=== PATIENT | male | born 1950 | race Caucasian/White ===

== ENCOUNTER 2018-09-10 17:46 | Outpatient (REF) | payer BC, SELFPAY ==
[2018-09-10 21:05] LABS: Anion Gap 9.8 mmol/L (3-11); BUN 17 mg/dL (7-18); CO2 27.2 mmol/L (21.0-32.0); CREATININE 1.02 mg/dL (0.70-1.30); Calcium 9.2 mg/dL (8.5-10.1); Chloride 102 mmol/L (98-107); Glucose 93 mg/dL (70-100); Sodium 139 mmol/L (136-145)
[2018-09-12 12:50] LABS: Hepatitis C Ab w Rflx HCV PCR Negative (NEGAT)
== END 2018-09-10 18:06 ==
LOC: NCHCN 17:46
PROVIDERS: PCP Internal Medicine; Visit Provider Internal Medicine
DX: I10 Essential (primary) hypertension (principal); Z11.59 Encounter for screening for other viral diseases; Z00.00 Encounter for general adult medical examination without abnormal findings
CPT/HCPCS: 80048; 86803

== ENCOUNTER 2020-06-01 16:12 | Outpatient (REF) | payer BC, SELFPAY ==
[2020-06-01 21:26] LABS: Anion Gap 12.8 mmol/L (3-11); BUN 25 mg/dL (7-18); CO2 23.2 mmol/L (21.0-32.0); CREATININE 1.38 mg/dL (0.70-1.30); Calcium 9.1 mg/dL (8.5-10.1); Chloride 101 mmol/L (98-107); Estimated GFR 51.24 (mL/min/1.73m2); Glucose 96 mg/dL (74-106); Potassium 4.1 mmol/L (3.5-5.1); Sodium 137 mmol/L (136-145)
[2020-06-01 21:33] LABS: Hemoglobin A1C 5.4 % (3.8-5.6)
== END 2020-06-01 16:32 ==
LOC: NCHCN 16:12
PROVIDERS: PCP Internal Medicine; Visit Provider Internal Medicine
DX: I10 Essential (primary) hypertension (principal); Z13.1 Encounter for screening for diabetes mellitus
CPT/HCPCS: 80048; 83036

== ENCOUNTER 2020-06-12 06:56 | Day surgery (SDC) | payer BC, SELFPAY ==
[2020-06-12] MEDS: Tetracaine 0.5% 4 ML BTL OS (08:14)
[2020-06-12] MEDS: Lidocaine 2% Jelly 6 ML SYR (08:18)
[2020-06-12] MEDS: Lidocaine 1% Pres-Free 5 ML VIAL (08:20)
[2020-06-12] MEDS: Balanced Salt Soln.-PLUS 500 ML BAG (08:23)
[2020-06-12] MEDS: Moxifloxacin-PF 1 MG/ML VIAL (08:29)
[2020-06-12] MEDS: Trypan Blue 0.06% 0.5 ML SYR (08:33)
--- NOTE | 2020-06-12 08:56 | W.PM.DSUDISC ---
Discharge Plan Disposition Patient Disposition: HOME Condition: Good Discharge Details Attending Provider: Carlos Petty Primary Care Provider: Hilario Charles Home Meds and New Rx's Prescriptions: No Action lisinopril 20 mg tablet 10 mg PO DAILY RF: 0 Discharge Instructions Stand Alone Forms: Post-op Topical Cataract, Jennifer Johnson (DSU) Discharge Orders Discharge Orders: Discharge Order (Routine); Ordered 06/12/20 Ordered By: Carlos Petty DS: Diagnosis Discharge Diagnosis (1) Posterior subcapsular age-related cataract of left eye: Status: Resolved (2) Nuclear sclerotic cataract of left eye: Status: Resolved
--- NOTE | 2020-06-12 08:57 | ROE_ITS ---
Date of service: 06/12/20 Time of Service: 08:57 Operative Note Operative Note DATE OF PROCEDURE: 06/12/20 PRE-OP DIAGNOSIS: Nuclear/posterior subcapsular cataract, left eye, symptomatic; poor red reflex secondary to cataract POST-OP DIAGNOSIS: same PROCEDURE: Cataract extraction using phacoemulsification with intraocular lens implant, left eye, using capsular staining with Vision Blue SURGEON: Carlos Petty ANESTHESIA: MAC (with local sub-tenon's anesthetic injection) COMPLICATIONS: None Patient was transported to: same day Patient's condition: stable Implants: Kirk [employer] Kirk / [employer] Tecnis [id number] Indications: Progressive decreased vision due to cataract, left eye, with poor red reflex Procedure Description: CATARACT SURGERY OPERATIVE REPORT PREOPERATIVE DIAGNOSIS: 1. Dense nuclear/posterior subcapsular cataract, left eye 2. Poor red reflex secondary to #1 POSTOPERATIVE DIAGNOSIS: Same OPERATION: 1. Cataract extraction using phacoemulsification with posterior chamber intraocular lens implant, left eye. 2. Capsular staining with Vision Blue IOL: IOL Toolmaker Helper/Model: Kirk & Kirk / CESIA Tecnis [id number] IOL Power: + 22.0 diopters IOL Serial Number: [id number] Optic Diameter: 6.0 mm Haptic/Overall Diameter: 13.0 mm PHACO INFO: Magnus Advanced Cell Diagnosticsurion Vision System with OZil and Active Fluidics Cumulative Dispersed Energy (CDE): 18.43 seconds SURGEON: Carlos Petty MD, DAMARIS ANESTHESIA: Monitored [facility] Care (MAC), with local sub-tenon's anesthetic infiltration COMPLICATIONS: None SPECIMENS: None INDICATIONS FOR PROCEDURE: The patient is a 67-year-old gentleman with history of diminished visual acuity in his left eye. He is noted to have a dense posterior subcapsular cataract with nuclear cataract of the left eye. The option of cataract surgery was offered to the patient and he wished to proceed. PROCEDURE: The correct surgical eye was identified and marked as the left eye and the pupil was dilated in the preoperative area using mydriatics and cycloplegics. The dilated pupil size was 5.5 mm. Oral sedation was administered in the form of an Imprimis MKO Melt (midazolam 3mg/ketamine 25mg/ondansetron 2mg). The patient was brought to the operating room where cardiopulmonary monitoring was instituted and surgical time-out was performed, confirming the correct operative eye and IOL power. Topical anesthesia was administered and ophthalmic povidone-iodine 5% was instilled into the conjunctival fornices. Lidocaine gel was applied to the cornea and the leanna-ocular area was prepped with Betadine 10% solution and draped in the usual sterile fashion for intraocular surgery, including an aperture drape. A Tegaderm transparent film dressing was cut in half and used to cover the lashes and lid margins. Care was taken to sequester the lashes and lid margins under the Tegaderm dressing. A lid speculum was placed between the lids of the operative eye and the Annamarie-Lupis operating microscope was maneuvered into position. Vijay scissors were then used to make a conjunctival buttonhole approximately 6mm posterior to the limbus in the inferonasal quadrant. Blunt dissection was carried out to expose bare sclera, and a blunt-tipped sub-tenon?s anesthesia cannula was introduced and passed posteriorly along the globe where non- preserved plain lidocaine was injected into posterior sub-Tenon?s space. A sideport knife was used to make a paracentesis port superiorly/superiort emporally. Intraocular phenylephrine/lidocaine was injected int the anterior chamber.. Air was then injected into the anterior chamber, followed by Vision Blue, which was painted over the anterior capsule and then irrigated out using BSS. The anterior chamber was filled with Healon Pro. A 2.4mm keratome knife was used to create a half-thickness groove at the limbus and then to construct a three-plane near-clear corneal tunnel extending 2.0mm into clear cornea at the 3:00 position. A flap was raised on the anterior capsule and capsulorhexis forceps were used to complete a continuous curvilinear capsulorhexis of 5.0 mm. The capsule was noted to be very thin. Moderate diffuse zonular laxity was noted. Balanced salt solution was then used to perform cortical cleaving hydrodissection and nuclear hydrodelineation until the lens could be freely rotated within the capsular bag. The lens nucleus was then disassembled and removed within the capsular bag and iris plane using phacoemulsification. Nuclear splinters were used to aid in cracking the lens into quadrants to reduce stress on the zonules. Residual cortical material was removed using the 45- degree angled silicone I/A tip with 0.3mm port. The posterior capsule was carefully polished to remove as much residual lens epithelial cells as safely possible. There was some residual posterior subcapsular plaque nasally. The capsular bag was then inflated and the anterior chamber deepened with viscoelastic. The lens implant described above was inserted into the capsular bag using the CESIA [place] Injector. A Kuglen hook was used to dial the IOL into position. Residual viscoelastic was then removed first from posterior to the IOL, then from the anterior chamber using the I/A handpiece. The lens implant was noted to center nicely within the capsular bag. The incisions were stromally hydrated, and the anterior chamber was reformed using BSS. Then 0.5cc of moxifloxacin 1.0mg/ml were injected into the capsular bag and anterior chamber. The incisions were checked with a Weck spear and found to be secure. Several drops of ophthalmic povidone-iodine 5% were then applied to the eye followed by two drops of Imprimis combination prednisolone/moxifloxacin/nepafenac solution. The drapes were removed and a clear plastic protective eye shield was placed over the eye. The patient was then returned to Same Day Surgery in stable condition.
[2020-06-12 09:15] VITALS: BP 138/92; PULSE 67; RESP 16; TEMP 36.2; O2SAT 96
== END 2020-06-12 09:30 | disposition home or self-care (01) ==
PROVIDERS: PCP Internal Medicine; Visit Provider Ophthalmology
PROC: (CPT 66982; principal; 2020-06-12 08:30)
DX: H25.042 Posterior subcapsular polar age-related cataract, left eye (principal); H25.12 Age-related nuclear cataract, left eye; H35.89 Other specified retinal disorders; I10 Essential (primary) hypertension
CPT/HCPCS: 66982; V2632

== ENCOUNTER 2020-06-26 06:59 | Day surgery (SDC) | payer BC, SELFPAY ==
[2020-06-26 07:00] VITALS: BP 140/99; PULSE 79; RESP 18; TEMP 36; O2SAT 95
--- NOTE | 2020-06-26 07:51 | W.PM.DSUDISC ---
Discharge Plan Disposition Patient Disposition: HOME Condition: Good Discharge Details Attending Provider: Carlos Petty Primary Care Provider: Hilario Charles Home Meds and New Rx's Prescriptions: No Action lisinopril 20 mg tablet 10 mg PO DAILY RF: 0 Discharge Instructions Stand Alone Forms: Post-op Topical Cataract, Jennifer Johnson (DSU) Discharge Orders Discharge Orders: Discharge Order (Routine); Ordered 06/26/20 Ordered By: Carlos Petty DS: Diagnosis Discharge Diagnosis (1) Nuclear sclerotic cataract of right eye: Status: Acute (2) Posterior subcapsular age-related cataract, right eye: Status: Resolved
[2020-06-26] MEDS: Lidocaine 1% Pres-Free 5 ML VIAL (07:54)
[2020-06-26] MEDS: Moxifloxacin-PF 1 MG/ML VIAL (08:01)
[2020-06-26] MEDS: Balanced Salt Soln.-PLUS 500 ML BAG (08:04)
[2020-06-26] MEDS: Lidocaine 2% Jelly 6 ML SYR (08:04)
[2020-06-26] MEDS: Povidone-Iodine Ophth 30 ML BTL (08:04)
[2020-06-26] MEDS: Tetracaine 0.5% 4 ML BTL OD (08:05)
[2020-06-26] MEDS: Trypan Blue 0.06% 0.5 ML SYR (08:10)
--- NOTE | 2020-06-26 08:25 | W.PM.OP ---
Date of service: 06/26/20 Time of Service: 08:26 Operative Note Operative Note DATE OF PROCEDURE: 06/26/20 PRE-OP DIAGNOSIS: Nuclear/posterior subcapsular cataract, right eye POST-OP DIAGNOSIS: same PROCEDURE: Cataract extraction using phacoemulsification with intraocular lens implantation, right eye, using capsular staining with Vision Blue SURGEON: Carlos Petty ANESTHESIA: MAC (with local sub-tenon's anesthetic injection) PATHOLOGY: none sent COMPLICATIONS: None Patient was transported to: same day Patient's condition: stable Implants: [employer] Kirk / [employer] Tecnis [id number] Indications: Progressive visual loss due to cataract, right eye Procedure Description: CATARACT SURGERY OPERATIVE REPORT PREOPERATIVE DIAGNOSIS: 1. Nuclear/posterior subcapsular cataract, right eye 2. Poor red reflex secondary to #1 POSTOPERATIVE DIAGNOSIS: Same OPERATION: 1. Cataract extraction using phacoemulsification with posterior chamber intraocular lens implant, right eye. 2. Capsular staining with Vision Blue IOL: IOL Printer Floor Covering Assistant/Model: Kirk & Kirk / CESIA Tecnis [id number] IOL Power: + 22.0 diopters IOL Serial Number: [id number] Optic Diameter: 6.0mm Haptic/Overall Diameter: 13.0mm PHACO INFO: Magnus Centurion Vision System with OZil and Active Fluidics Cumulative Dispersed Energy (CDE): 5.61 seconds SURGEON: Carlos Petty MD, DAMARIS ANESTHESIA: Monitored Anesthesia Care (MAC), with local sub-tenon's anesthetic infiltration COMPLICATIONS: None SPECIMENS: None INDICATIONS FOR PROCEDURE: Patient is a 9-year-old with history of diminished visual acuity in both eyes secondary to development of bilateral nuclear and posterior subcapsular cataract, left eye greater than right. He has already undergone cataract surgery in his left eye and is doing well postoperatively. He now presents for cataract surgery in the right eye. PROCEDURE: The correct surgical eye was identified and marked as the right eye and the pupil was dilated in the preoperative area using mydriatics and cycloplegics. The dilated pupil size was 5.5 mm. Oral sedation was administered in the form of an Imprimis MKO Melt (midazolam 3mg/ketamine 25mg/ondansetron 2mg). The patient was brought to the operating room where cardiopulmonary monitoring was instituted and surgical time-out was performed, confirming the correct operative eye and IOL power. Topical anesthesia was administered and ophthalmic povidone-iodine 5% was instilled into the conjunctival fornices. Lidocaine gel was applied to the cornea and the leanna-ocular area was prepped with Betadine 10% solution and draped in the usual sterile fashion for intraocular surgery, including an aperture drape. A Tegaderm transparent film dressing was cut in half and used to cover the lashes and lid margins. Care was taken to sequester the lashes and lid margins under the Tegaderm dressing. A lid speculum was placed between the lids of the operative eye and the Annamarie-Lupis operating microscope was maneuvered into position. Vijay scissors were then used to make a conjunctival buttonhole approximately 6mm posterior to the limbus in the inferonasal quadrant. Blunt dissection was carried out to expose bare sclera, and a blunt-tipped sub-tenon?s anesthesia cannula was introduced and passed posteriorly along the globe where non-preserved plain lidocaine was injected into posterior sub-Tenon?s space. A sideport knife was used to make a paracentesis port inferotemporally. Intraocular phenylephrine/lidocaine was injected into the anterior chamber. Air was injected into the anterior chamber, followed by Vision Blue, which was painted over the anterior capsule and then irrigated out with BSS. The anterior chamber was filled with Healon Pro. A 2.4mm keratome knife was used to create a half-thickness groove at the limbus and then to construct a three-plane near-clear corneal tunnel extending 2.0mm into clear cornea superiortemporally. A flap was raised on the anterior capsule and capsulorhexis forceps were used to complete a continuous curvilinear capsulorhexis of 5.0 mm. The capsule was noted quite thin with mild to moderate diffuse zonular laxity. Balanced salt solution was then used to perform cortical cleaving hydrodissection and nuclear hydrodelineation until the lens could be freely rotated within the capsular bag. The lens nucleus was then disassembled and removed within the capsular bag and iris plane using phacoemulsification. Residual cortical material was removed using the I/A handpiece. The posterior capsule was carefully polished to remove as much residual lens epithelial cells as safely possible. The capsular bag was then inflated and the anterior chamber deepened with viscoelastic. The lens implant described above was inserted into the capsular bag using the CESIA Al[place] Injector. A Kuglen hook was used to dial the IOL into position. Residual viscoelastic was then removed first from posterior to the IOL, then from the anterior chamber using the I/A handpiece. The lens implant was noted to center nicely within the capsular bag. The incisions were stromally hydrated, and the anterior chamber was reformed using BSS. Then 0.5cc of moxifloxacin 1.0mg/ml were injected into the capsular bag and anterior chamber. The incisions were checked with a Weck spear and found to be secure. Several drops of ophthalmic povidone-iodine 5% were then applied to the eye followed by two drops of Imprimis combination prednisolone/moxifloxacin/nepafenac solution. The drapes were removed and a clear plastic protective eye shield was placed over the eye. The patient was then returned to Same Day Surgery in stable condition.
[2020-06-26 08:54] VITALS: BP 152/98; PULSE 77; RESP 18; TEMP 36; O2SAT 97
== END 2020-06-26 08:55 | disposition home or self-care (01) ==
PROVIDERS: PCP Internal Medicine; Visit Provider Ophthalmology
PROC: (CPT 66982; principal; 2020-06-26 08:30)
DX: H25.11 Age-related nuclear cataract, right eye (principal); H25.041 Posterior subcapsular polar age-related cataract, right eye; H35.89 Other specified retinal disorders; Z96.1 Presence of intraocular lens; Z98.42 Cataract extraction status, left eye
CPT/HCPCS: 66982; V2632

== ENCOUNTER 2020-09-01 16:05 | Outpatient (REF) | payer BC, SELFPAY ==
[2020-09-01 20:54] LABS: Anion Gap 7.2 mmol/L (3-11); BUN 15 mg/dL (7-18); CO2 27.8 mmol/L (21.0-32.0); CREATININE 1.15 mg/dL (0.70-1.30); Calcium 8.8 mg/dL (8.5-10.1); Chloride 106 mmol/L (98-107); Glucose 105 mg/dL (74-106); Potassium 3.9 mmol/L (3.5-5.1); Sodium 141 mmol/L (136-145)
== END 2020-09-01 16:25 ==
LOC: NCHCN 16:05
PROVIDERS: PCP Internal Medicine; Visit Provider Internal Medicine
DX: I10 Essential (primary) hypertension (principal); Z00.00 Encounter for general adult medical examination without abnormal findings
CPT/HCPCS: 80048

== ENCOUNTER 2020-11-24 00:47 | Outpatient (CLI) | payer BC, SELFPAY ==
--- NOTE | 2020-11-24 | DI.RAD_ITS ---
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 TECHNIQUE: 2D digital imaging was performed. COMPARISON: No exams were available for comparison FINDINGS: No acute fracture or dislocation. The articular surfaces are well maintained without degenerative ch keon present. There is a small joint effusion. The bones appear mildly osteopenic. No suspicious l ytic or sclerotic lesion is identified. The soft tissues are unremarkable. IMPRESSION: 1. No significant degenerative changes in the left knee. 2. Mild generalized osteopenia. 3. Small joint effusion. DATA REPOSITORY: RADIATION DOSE DELIVERED:
== END 2020-11-24 01:07 ==
PROVIDERS: PCP Internal Medicine; Visit Provider Internal Medicine
DX: M25.462 Effusion, left knee (principal); M85.88 Other specified disorders of bone density and structure, other site
CPT/HCPCS: 73562

== ENCOUNTER 2021-03-26 14:36 | Outpatient (REF) | payer BC, SELFPAY ==
[2021-03-26 18:48] LABS: Abs Immature Grans 0.06 10^3/uL (0.0-0.06); Absolute Basophil Count 0.07 10^3/uL (0.0-0.2); Absolute Eosinophil Count 0.07 10^3/uL (0.0-0.7); Absolute Lymphocyte Count 2.39 10^3/uL (1.2-3.4); Absolute Monocyte Count 0.76 10^3/uL (0.1-0.8); Absolute Neutrophil Count 4.77 10^3/uL (1.2-6.7); Basophils % 0.9; Eosinophils % 0.9; HGB 13.6 g/dL (13.5-17.5); Immature Grans % 0.7; Lymphocytes % 29.4; MPV 10.4 fL (8.0-11.0); Monocytes % 9.4; Neutrophils % 58.7; Nucleated RBC 0 %; Platelet Count 261 10^3/uL (130-400); RDW 12.9 % (11.8-14.1); RDW-SD 47.7 fL; WBC 8.12 10^3/uL (4.4-10.8)
[2021-03-26 19:03] LABS: ALT 58 U/L (16-63); AST 45 U/L (15-37); Albumin 3.4 g/dL (3.4-5.0); Alkaline Phosphatase 191 U/L (46-116); Anion Gap 10.8 mmol/L (3-11); BUN 15 mg/dL (7-18); Bilirubin, Total 0.5 mg/dL (0.2-1.0); C-Reactive Protein 0.14 mg/dL (0.0-0.3); CO2 25.2 mmol/L (21.0-32.0); CREATININE 1.1 mg/dL (0.70-1.30); Calcium 8.7 mg/dL (8.5-10.1); Chloride 106 mmol/L (98-107); Glucose 88 mg/dL (74-106); Potassium 3.8 mmol/L (3.5-5.1); Sodium 142 mmol/L (136-145); Total Protein 6.3 g/dL (6.4-8.2)
== END 2021-03-26 14:37 | disposition home or self-care (01) ==
LOC: NCHCN 14:36
PROVIDERS: PCP Internal Medicine; Visit Provider Family Medicine
DX: R22.42 Localized swelling, mass and lump, left lower limb (principal)
CPT/HCPCS: 80053; 85025; 86140

== ENCOUNTER 2021-10-11 17:42 | Outpatient (REF) | payer BC, SELFPAY ==
[2021-10-11 21:44] LABS: Anion Gap 8.3 mmol/L (3-11); BUN 35 mg/dL (7-18); CO2 30.7 mmol/L (21.0-32.0); CREATININE 1.6 mg/dL (0.70-1.30); Calcium 8.7 mg/dL (8.5-10.1); Chloride 100 mmol/L (98-107); Estimated GFR 42.95 (mL/min/1.73m2); Glucose 97 mg/dL (74-106); Potassium 3.7 mmol/L (3.5-5.1); Sodium 139 mmol/L (136-145)
== END 2021-10-11 17:43 | disposition home or self-care (01) ==
LOC: NCHCN 17:42
PROVIDERS: PCP Internal Medicine; Visit Provider Family Medicine
DX: I10 Essential (primary) hypertension (principal)
CPT/HCPCS: 80048

== ENCOUNTER 2021-11-26 14:36 | Outpatient (REF) | payer OTHER, SELFPAY ==
[2021-11-26 20:27] LABS: Anion Gap 9.6 mmol/L (3-11); BUN 19 mg/dL (7-18); CO2 26.4 mmol/L (21.0-32.0); CREATININE 1.3 mg/dL (0.70-1.30); Calcium 8.5 mg/dL (8.5-10.1); Calculated LDL 70 mg/dL (<100); Chloride 101 mmol/L (98-107); Cholesterol 166 mg/dL (<200); Estimated GFR 54.57 (mL/min/1.73m2); Glucose 108 mg/dL (74-106); HDL Cholesterol 41 mg/dL (40-60); Potassium 4.1 mmol/L (3.5-5.1); Sodium 137 mmol/L (136-145); Triglyceride 277 mg/dL (<150)
== END 2021-11-26 14:37 | disposition home or self-care (01) ==
LOC: NCHCN 14:36
PROVIDERS: PCP Internal Medicine; Visit Provider Family Medicine
DX: I10 Essential (primary) hypertension (principal); Z00.00 Encounter for general adult medical examination without abnormal findings
CPT/HCPCS: 80048; 80061

== ENCOUNTER 2022-08-03 09:34 | Outpatient (REF) | payer OTHER, SELFPAY ==
[2022-08-03 16:32] LABS: ALT 36 U/L (16-63); AST 34 U/L (15-37); Albumin 3.6 g/dL (3.4-5.0); Alkaline Phosphatase 140 U/L (46-116); Anion Gap 8.2 mmol/L (3-11); BUN 13 mg/dL (7-18); Bilirubin, Total 1.1 mg/dL (0.2-1.0); CO2 30.8 mmol/L (21.0-32.0); CREATININE 1.1 mg/dL (0.70-1.30); Calcium 9.2 mg/dL (8.5-10.1); Chloride 101 mmol/L (98-107); Estimated GFR 72.22 (mL/min/1.73m2); Folate 12.8 ng/mL (8.6-20.0); Glucose 106 mg/dL (74-106); Potassium 3.9 mmol/L (3.5-5.1); Sodium 140 mmol/L (136-145); TSH (W/Ref FT4) 1.04 uIU/mL (0.36-3.74); Total Protein 6.9 g/dL (6.4-8.2); Vitamin B12 167 pg/mL (193-986)
[2022-08-03 16:54] LABS: Abs Immature Grans 0.04 10^3/uL (0.0-0.06); Absolute Basophil Count 0.05 10^3/uL (0.0-0.2); Absolute Eosinophil Count 0.08 10^3/uL (0.0-0.7); Absolute Lymphocyte Count 1.11 10^3/uL (1.2-3.4); Absolute Monocyte Count 0.69 10^3/uL (0.1-0.8); Basophils % 0.7; Eosinophils % 1.1; HCT 42.5 % (40.0-50.0); HGB 14.3 g/dL (13.5-17.5); Immature Grans % 0.6; Lymphocytes % 15.7; MCH 33.7 pg (27.0-33.0); MCHC 33.6 % (32.0-36.0); MCV 100 fL (80-95); MPV 9.6 fL (8.0-11.0); Monocytes % 9.8; Neutrophils % 72.1; Platelet Count 289 10^3/uL (130-400); RBC 4.24 10^6/uL (4.36-5.78); RDW 13.9 % (11.8-14.1); RDW-SD 51.3 fL; WBC 7.07 10^3/uL (4.4-10.8)
== END 2022-08-03 09:35 | disposition home or self-care (01) ==
LOC: NCHCN 09:34
PROVIDERS: PCP Internal Medicine; Visit Provider Family Medicine
DX: R41.3 Other amnesia (principal); R29.898 Other symptoms and signs involving the musculoskeletal system
CPT/HCPCS: 80053; 82607; 82746; 84443; 85025

== ENCOUNTER → 2022-09-01 02:54 | Outpatient (CLI) | payer OTHER, SELFPAY ==
--- NOTE | 2022-09-01 08:30 | DI.CT_ITS ---
Exam(s) CT HEAD WO/W EXAM: CT HEAD WO/W CLINICAL HISTORY: MEMORY IMPAIRMENT, R41.3; BILAT LEG WEAKNESS, R29.898. TECHNIQUE: Imaging Protocol: Axial computed tomography images with coronal and sagittal reformatted images were created and reviewed. CONTRAST MATERIAL: Intravenous: Omnipaque 350 contrast volume:100 mL COMPARISON: No exams were available for comparison FINDINGS: Ventricles and Extra axial spaces: Normal in size and morphology for the patient's age. Hemorrhage: None. Cerebral parenchyma: There is no evidence of an acute territorial infarct. There are areas of decrea sed attenuation in the white matter most consistent with small vessel ischemic disease. Enhancement: No suspicious enhancement. [place]: Unremarkable. Midline shift: None. Brainstem/Cerebellum: Normal. Calvarium: Normal. Degenerative changes are seen in the TMJs bilaterally. Visualized Paranasal sinuses/Mastoids: Clear. IMPRESSION: No acute intracranial process. RADIATION DOSE DELIVERED: 1,494.74mGy.cm Total DLP 1,494.74mGy.cm Total DLP DATA REPOSITORY: All CT scans at this facility are submitted to the National Radiology Data Registry (NRDR) Dose Index Registry (DIR) with the [employer] (ACR). RADIATION OPTIMIZATION: All CT scans at this facility use at least one of these dose optimization te chniques: automated exposure control; mA and/or kV adjustment per patient size (includes targeted exa ms where dose is matched to clinical indication); or iterative reconstruction.
[2022-09-01] MEDS: Omnipaque 350 MG/ML 500 ML BTL-Imaging package IJ (08:39)
[2022-09-01] MEDS: Normal Saline Flush 10 ML SYR IVP (08:42)
== END ==
PROVIDERS: PCP Internal Medicine; Visit Provider Family Medicine
DX: R41.3 Other amnesia (principal); R29.898 Other symptoms and signs involving the musculoskeletal system
CPT/HCPCS: 70470

== ENCOUNTER 2023-12-21 16:15 | Outpatient (REF) | payer MEDICARE, SELFPAY ==
[2023-12-21 21:37] LABS: HCT 45.6 % (40.0-50.0); HGB 15.1 g/dL (13.5-17.5); MCH 31.3 pg (27.0-33.0); MCHC 33.1 % (32.0-36.0); MCV 94 fL (80-95); MPV 9.4 fL (8.0-11.0); Platelet Count 281 10^3/uL (130-400); RBC 4.83 10^6/uL (4.36-5.78); RDW-SD 45.1 fL; WBC 6.48 10^3/uL (4.4-10.8)
[2023-12-21 21:47] LABS: ALT 67 U/L (16-63); AST 74 U/L (15-37); Albumin 3.6 g/dL (3.4-5.0); Alkaline Phosphatase 149 U/L (46-116); Anion Gap 10.8 mmol/L (3-11); BUN 18 mg/dL (7-18); Bilirubin, Total 0.4 mg/dL (0.2-1.0); CO2 26.2 mmol/L (21.0-32.0); CREATININE 1.3 mg/dL (0.70-1.30); Chloride 104 mmol/L (98-107); Estimated GFR 58.37 (mL/min/1.73m2); Glucose 102 mg/dL (74-106); Potassium 3.9 mmol/L (3.5-5.1); Sodium 141 mmol/L (136-145); Total Protein 7.2 g/dL (6.4-8.2)
== END 2023-12-21 16:16 | disposition home or self-care (01) ==
LOC: NCHCN 16:15
PROVIDERS: PCP Internal Medicine; Visit Provider Family Medicine
DX: I10 Essential (primary) hypertension (principal)
CPT/HCPCS: 80053; 85027

== ENCOUNTER → 2024-02-01 03:12 | Outpatient (CLI) | payer MEDICARE, SELFPAY ==
--- NOTE | 2024-02-01 14:28 | DI.RAD_ITS ---
Exam(s) XR KNEE RT 3V AP,LAT,SAM EXAM: XR KNEE RT 3V AP,LAT,SAM CLINICAL HISTORY: RT KNEE PAIN, M25.561. TECHNIQUE: 2D digital imaging was performed of the right knee. Three views obtained. AP, lateral an d PA tunnel views were obtained. COMPARISON: CR XR KNEE LT 3V AP,LAT,SAM from 11/24/2020 FINDINGS: BONES: No acute fracture is present. No bony destructive lesion is seen. JOINTS: The knee is normally aligned. There is a small joint effusion. SOFT TISSUE: Normal. IMPRESSION: Small joint effusion. DATA REPOSITORY: RADIATION DOSE DELIVERED:
== END ==
PROVIDERS: PCP Internal Medicine; Visit Provider Family Medicine
DX: M25.561 Pain in right knee (principal); M25.461 Effusion, right knee
CPT/HCPCS: 73562

== ENCOUNTER 2024-06-25 15:56 | Outpatient (REF) | payer MEDICARE, SELFPAY ==
[2024-06-25 17:40] LABS: Vitamin B12 384 pg/mL (193-986)
[2024-06-25 22:36] LABS: PSA, Screening 23.9 ng/mL (<=6.5)
== END 2024-06-25 15:57 | disposition home or self-care (01) ==
LOC: NCHCN 15:56
PROVIDERS: PCP Family Medicine; Visit Provider Family Medicine
DX: N40.1 Benign prostatic hyperplasia with lower urinary tract symptoms (principal)
CPT/HCPCS: 84153; 82607

== ENCOUNTER → 2024-07-04 08:50 | Outpatient (BNVA) | payer OTHER, SELFPAY | PROVIDERS: PCP Family Medicine; Referring Provider Family Medicine; Visit Provider Nurse Practitioner Gerontology | DX: N40.1 Benign prostatic hyperplasia with lower urinary tract symptoms (principal); R35.1 Nocturia; N40.2 Nodular prostate without lower urinary tract symptoms; R97.20 Elevated prostate specific antigen [PSA] | CPT/HCPCS: 51798; 81003; 99205 ==

== ENCOUNTER 2024-07-27 19:48 | Inpatient (IN) | payer OTHER, SELFPAY ==
[2024-07-27] VITALS (14 sets, daily range): BP systolic 176–197; BP diastolic 106–112; PULSE 42–66; RESP 12–16; TEMP 36.6; O2SAT 96–98
--- NOTE | 2024-07-27 20:34 | W.ED.GENAD ---
Discharge Plan Discharge Details Chief Complaint: Fall/Non TraumaCriteria Primary Care Provider: Ruy Ellis ED Provider: Carlos Barriga Home Meds and New Rx's Prescriptions: No Action donepezil 5 mg tablet 5 mg PO DAILY lisinopril-hydrochlorothiazide 20-25 mg tablet 1 tab PO DAILY mecobalamin (vitamin B12) 1,000 mcg tablet,chewable 1,000 mcg PO DAILY levofloxacin 500 mg tablet 500 mg PO DAILY Qty: 3 0RF Rx Instructions: Take 1 tab the day before the procedure, one the day of the procedure, and 1 tab the day after the procedure. HPI General Date/Time Provider Initiated Documentation: 07/27/24 20:17. HPI Narrative: 73-year-old male presents after mechanical slip and fall off of 2 steps, onto right side, pain to right hip right thigh leg and ankle unable to bear weight on right leg, did hit the back of his head small abrasion to scalp without loss of conscious nausea vomiting headache neck pain chest or abdominal pain. Behaving normally per family. Related Data Home Medications ?Medication ?Instructions ?Recorded ?Confirmed donepezil 5 mg tablet 5 mg PO DAILY 04/24/24 07/27/24 lisinopril 20 1 tab PO DAILY 04/24/24 07/27/24 mg-hydrochlorothiazide 25 mg tablet mecobalamin (vitamin B12) 1,000 1,000 mcg PO DAILY 04/24/24 07/27/24 mcg chewable tablet levofloxacin 500 mg tablet 500 mg PO DAILY #3 tabs 07/09/24 07/27/24 Previous Rx's ?Medication ?Instructions ?Recorded levofloxacin 500 mg tablet 500 mg PO DAILY #3 tabs 07/09/24 Allergies Allergy/AdvReac Type Severity Reaction Status Date / Time No Known Allergies Allergy Unverified 07/27/24 19:57 General Stated Complaint: Fall/Non TraumaCriteria ADILENE: 3 Exam Narrative Exam Narrative: Alert oriented resting fully no acute distress 1 mm superficial abrasion to occipital scalp hemostatic no foreign body No midline spinal tenderness step-off crepitus or deformity full range of motion of neck Speaking full sentences no respiratory distress no chest wall crepitus or deformity Abdomen soft nontender nondistended Pelvis stable Discomfort with movement at hip and knee right side, mild right knee effusion, no crepitus deformity or step-off noted to limb, warm well-perfused DP pulse intact sensate unable to bear weight Alert oriented moving extremities without deficit no ataxia normal speech cranial nerves intact Course Vital Signs Vital signs: Vital Signs Temperature 36.6 C 07/27/24 19:54 Pulse 48 L 07/27/24 19:54 Respiratory Rate 16 07/27/24 19:54 Blood Pressure 192/109 H 07/27/24 19:54 Pulse Oximetry 98 07/27/24 19:54 Temperature 36.6 C 07/27/24 19:54 Pulse 48 L 07/27/24 19:54 Respiratory Rate 16 07/27/24 19:54 Respiratory Effort Normal 07/27/24 19:58 Blood Pressure 192/109 H 07/27/24 19:54 Pulse Oximetry 98 07/27/24 19:54 Pain Level 6 07/27/24 19:54 Medical Decision Making 73-year-old male presents after mechanical fall from standing 2 stairs slipped backwards landing on right side pain to hip leg and ankle no loss of consciousness however patient did sustain 1 mm superficial abrasion occipital scalp hemostatic no foreign body no step-off, no midline spinal tenderness crepitus step-off or deformity, alert oriented cranial nerves intact no focal deficits sensation intact no truncal ataxia, great difficulty with movement of right lower extremity due to pain at hip and thigh, warm well-perfused sensate limb. Concern for proximal femur fracture versus pelvic fracture versus less likely tibial plateau fracture obtain x-ray of right lower extremity, patient does not want analgesia at this time. No to be hypertensive bradycardic will repeat vitals if still hypertensive bradycardic must consider [place]'s reflex in the setting of intracranial hypertension and will add CT head however patient has no nausea vomiting altered mental status pupillary defect cranial nerve defect or focal neurologic defect to suggest ICH 23: 27 intertrochanteric right femur fracture. Limb neurovascularly intact. Hypertension likely related to pain, patient is got a dose of Toradol now a dose of Dilaudid as well, we do not have orthopedic surgery in house until the or , have reached out to [facility], operated by [facility] as well as [facility] she do not have any orthopedic availability, I have placed a consultation with [facility] orthopedic team for potential transfer awaiting callback 07/28 12: 50 awaiting callback for potential transfer patient resting comfortably hemodynamically stable Quality:SDOH Health Related Social Needs: No Data to Display PFSH All Active Problems (Updated 07/06/24 @ 09:00 by Juli Villaseñor DNP) Lower urinary tract symptoms (LUTS) (Acute) Prostate nodule (Acute) Elevated PSA, greater than or equal to 20 ng/ml (Acute) Elevated PSA (Acute) Dementia (Chronic) Nuclear sclerotic cataract of right eye (Acute) Medical History BPH (benign prostatic hyperplasia) Screening for diabetes mellitus Seborrheic keratoses Hypertension Surgical History History of cataract surgery Social History Smoking/Tobacco Use Status: Former Tobacco Use Quit Date: 11/06/79 Smoking risk assessment performed?: Yes Alcohol Intake: current Alcohol Intake frequency: a few times a week Alcohol type: beer Drug use: Never Substance use type: does not use Details: drank 1 beer tonight Housing: house Do you feel safe at home: Yes Do you feel safe in your relationship?: Yes Sign Out Sign Out Data: Sign Out Comment: right hip fracture from [facility] fall, no ortho, neuro vasc intact, awaiting ortho [facility] call back Last updated by Carlos Barriga MD at 07/28/24 00:25
--- NOTE | 2024-07-27 21:37 | DI.RAD_ITS ---
Exam(s) XR FEMUR RT EXAM: XR FEMUR RT CLINICAL HISTORY: fall right hip thigh pain, unable to walk. TECHNIQUE: 2D digital imaging was performed. COMPARISON: No exams were available for comparison FINDINGS: 3 views There is intertrochanteric fracture of the right hip with moderate varus deformity. No prominent ips ilateral hip joint space narrowing. No other fractures identified lower down in the femur. IMPRESSION: Intertrochanteric fracture right hip. DATA REPOSITORY: RADIATION DOSE DELIVERED:
--- NOTE | 2024-07-27 21:38 | DI.RAD_ITS ---
Exam(s) XR ANKLE RT COMPLETE EXAM: XR ANKLE RT COMPLETE CLINICAL HISTORY: fall unable to walk, pain leg and ankle. TECHNIQUE: 2D digital imaging was performed. COMPARISON: No exams were available for comparison FINDINGS: 3 views No evidence of fracture or widening of the ankle mortise. Talar dome unremarkable. No obvious degen erative changes nor osseous lesions IMPRESSION: No significant osseous findings in the ankle. DATA REPOSITORY: RADIATION DOSE DELIVERED:
--- NOTE | 2024-07-27 21:38 | DI.RAD_ITS ---
Exam(s) XR PELVIS AP EXAM: XR PELVIS AP CLINICAL HISTORY: fall right hip pain. TECHNIQUE: 2D digital imaging was performed. COMPARISON: No exams were available for comparison FINDINGS: Single AP view. There appears to be a subtle intertrochanteric fracture of the right hip an element of Verus deformit y. No prominent hip joint space narrowing. No other fractures in the pelvis nor within the opposite -left hip. IMPRESSION: Right hip intertrochanteric fracture. DATA REPOSITORY: RADIATION DOSE DELIVERED:
--- NOTE | 2024-07-27 21:38 | DI.RAD_ITS ---
Exam(s) XR TIB/FIB RT EXAM: XR TIB/FIB RT CLINICAL HISTORY: fall unable to walk. TECHNIQUE: 2D digital imaging was performed. COMPARISON: No exams were available for comparison FINDINGS: Two views. No evidence of fracture of the tibia and fibula. No radiopaque foreign bodies. No osseous lesions. Bone density normal. IMPRESSION: No acute osseous findings in the tibia and fibula. DATA REPOSITORY: RADIATION DOSE DELIVERED:
--- NOTE | 2024-07-27 21:38 | DI.RAD_ITS ---
Exam(s) XR KNEE RT 3V AP,LAT,SAM EXAM: XR KNEE RT 3V AP,LAT,SAM CLINICAL HISTORY: fall, unable to walk. TECHNIQUE: 2D digital imaging was performed. COMPARISON: CR XR KNEE RT 3V AP,LAT,SAM from 02/01/2024 FINDINGS: 3 views No evidence of acute fracture or obvious joint effusion. No joint space narrowing. Mild degenerativ e changes in the medial compartment. No osseous lesions. No radiopaque foreign bodies IMPRESSION: No acute osseous findings in the knee. DATA REPOSITORY: RADIATION DOSE DELIVERED:
[2024-07-27 22:59] LABS: Abs Immature Grans 0.09 10^3/uL (0.0-0.06); Absolute Basophil Count 0.06 10^3/uL (0.0-0.2); Absolute Eosinophil Count 0.08 10^3/uL (0.0-0.7); Absolute Lymphocyte Count 1.34 10^3/uL (1.2-3.4); Absolute Monocyte Count 0.92 10^3/uL (0.1-0.8); Absolute Neutrophil Count 10.14 10^3/uL (1.2-6.7); Basophils % 0.5 %; Eosinophils % 0.6 %; HCT 42.3 % (40.0-50.0); HGB 14.4 g/dL (13.5-17.5); Immature Grans % 0.7 %; Lymphocytes % 10.6 %; MCH 32.1 pg (27.0-33.0); MCV 94 fL (80-95); MPV 9.9 fL (8.0-11.0); Monocytes % 7.3 %; Neutrophils % 80.3 %; Platelet Count 263 10^3/uL (130-400); RBC 4.49 10^6/uL (4.36-5.78); RDW 13.9 % (11.8-14.1); RDW-SD 48.3 fL; WBC 12.63 10^3/uL (4.4-10.8)
[2024-07-27] MEDS: Ketorolac 15 MG/ML VIAL IVP (23:01)
[2024-07-27 23:08] LABS: ALT 30 U/L (16-63); AST 31 U/L (15-37); Albumin 3.3 g/dL (3.4-5.0); Alkaline Phosphatase 128 U/L (46-116); Anion Gap 11.6 mmol/L (3-11); BUN 19 mg/dL (7-18); Bilirubin, Total 0.47 mg/dL (0.2-1.0); CO2 23.4 mmol/L (21.0-32.0); Chloride 100 mmol/L (98-107); Estimated GFR 79.97 (mL/min/1.73m2); Glucose 99 mg/dL (74-106); Potassium 4.8 mmol/L (3.5-5.1); Sodium 135 mmol/L (136-145); Total Protein 6.2 g/dL (6.4-8.2)
--- NOTE | 2024-07-27 23:10 | DI.VRAD_ITS ---
PROCEDURE INFORMATION: Exam: XR Right Ankle Exam date and time: 07/27/2024 9:21 PM Age: 73 years old Clinical indication: Other: Pain after fall, unable to walk. TECHNIQUE: Imaging protocol: Radiologic exam of the right ankle. Views: 3 or more views. COMPARISON: CR XR TIB/FIB RT 07/27/2024 9:17 PM FINDINGS: Bones/joints: The bones are demineralized. No acute fracture or subluxation. Soft tissues: Unremarkable. IMPRESSION: No acute bony pathology. Dictated and Authenticated by: Lea Baer MD. Ordering:SANTOS Gonzalez MD
--- NOTE | 2024-07-27 23:10 | DI.VRAD_ITS ---
PROCEDURE INFORMATION: Exam: XR Right Femur Exam date and time: 07/27/2024 8:59 PM Age: 73 years old Clinical indication: Patient HX: Fall right hip thigh pain, unable to walk TECHNIQUE: Imaging protocol: Radiologic exam of the right femur. Views: 2 views. COMPARISON: CR XR PELVIS AP 07/27/2024 8:57 PM FINDINGS: Bones/joints: Acute intertrochanteric right femoral fracture with moderate varus deformity. Remainder of the femur appears intact. Soft tissues: Soft tissue swelling surrounding the fracture site. IMPRESSION: Acute intertrochanteric right femoral fracture with moderate varus deformity. Dictated and Authenticated by: Lea Baer MD. Ordering:SANTOS Gonzalez MD
--- NOTE | 2024-07-27 23:10 | DI.VRAD_ITS ---
PROCEDURE INFORMATION: Exam: XR Pelvis Exam date and time: 07/27/2024 8:57 PM Age: 73 years old Clinical indication: Hip pain; Patient HX: Fall right hip thigh pain, unable to walk TECHNIQUE: Imaging protocol: Radiologic exam of the pelvis. Views: 1 or 2 view. COMPARISON: No relevant prior studies available. FINDINGS: Bones/joints: Acute intertrochanteric right femoral fracture with moderate varus deformity. Mild joint space narrowing in the hips. Soft tissues: Soft tissue swelling surrounding the fracture site. IMPRESSION: Acute intertrochanteric right femoral fracture with moderate varus deformity. Dictated and Authenticated by: Lea Baer MD. Ordering:SANTOS Gonzalez MD
--- NOTE | 2024-07-27 23:10 | DI.VRAD_ITS ---
PROCEDURE INFORMATION: Exam: XR Right Tibia and Fibula Exam date and time: 07/27/2024 9:17 PM Age: 73 years old Clinical indication: Other: Pain after fall, unable to walk. TECHNIQUE: Imaging protocol: Radiologic exam of the right tibia and fibula. Views: 2 views. COMPARISON: CR XR KNEE RT 3V AP,LAT,SAM 07/27/2024 9:10 PM FINDINGS: Bones/joints: The bones are demineralized. No acute fracture or subluxation. Soft tissues: Unremarkable. IMPRESSION: No acute bony pathology. Dictated and Authenticated by: Lea Baer MD. Ordering:SANTOS Gonzalez MD
--- NOTE | 2024-07-27 23:11 | DI.VRAD_ITS ---
PROCEDURE INFORMATION: Exam: XR Right Knee Exam date and time: 07/27/2024 9:10 PM Age: 73 years old Clinical indication: Other: Pain after fall, unable to walk. TECHNIQUE: Imaging protocol: Radiologic exam of the right knee. Views: 3 views. COMPARISON: CR XR KNEE RT 3V AP,LAT,SAM 02/01/2024 2:12 PM FINDINGS: Bones/joints: The bones are demineralized. No acute fracture or subluxation. Soft tissues: Unremarkable. IMPRESSION: No acute bony pathology. Dictated and Authenticated by: Lea Baer MD. Ordering:PKRISTEN Gonzalez MD
[2024-07-27] MEDS: HYDROmorphone 2 MG/ML SYR 0.5 MG IVP (23:58)
[2024-07-28] VITALS (25 sets, daily range): BP systolic 113–178; BP diastolic 68–107; PULSE 40–70; RESP 13–18; TEMP 35.9–36.9; O2SAT 95–99
--- NOTE | 2024-07-28 01:54 | W.EDPROG ---
Date of service: 07/28/24 Time of Service: 01:54 Medical Decision Making The patient was signed out to me by my colleague Dr. Serafin Castañeda pending follow-up from [facility] for potential transfer. Multiple local hospitals have been called for lateral transfer, all of which have been refused secondary to capacity at those locations. We did contact [facility] and the case was discussed with orthopedics, and then because of the patient's age the case was discussed with the hospitalist 's [place]. He agrees to accept the patient for transfer. Patient will be transferred for further surgical management. He will be made n.p.o. I have extensively reviewed the treatment plan with the patient. I have addressed all patient concerns at this time. I have also discussed the plan with the admitting physician and they agree with the current assessment and plan and have agreed to assume responsibility for the patient. All parties demonstrate verbal understanding and agreement with our assessment and plan at this time. The documentation in this chart was dictated using [employer] dictation software. Please excuse any dictation errors. At time of transfer the patient was reassessed and continued to demonstrate No signs of acute respiratory distress requiring intubation, hemodynamic instability requiring pressor support, or rapidly declining mental status. Quality:SDOH Health Related Social Needs: No Data to Display Sign Out Sign Out Data: Sign Out Comment: right hip fracture from [facility] fall, no ortho, neuro vasc intact, awaiting ortho [facility] call back Last updated by Carlos Barriga MD at 07/28/24 00:25 Discharge Plan Disposition Patient Disposition: Transfer-Acute Inpatient Care Specific Acute Inpt Facility: [facility] Condition: Good Discharge Details Chief Complaint: Fall/Non TraumaCriteria Clinical Impression: Closed right hip fracture Primary Care Provider: Ruy Ellis ED Provider: Richard Hein Home Meds and New Rx's Prescriptions: No Action donepezil 5 mg tablet 5 mg PO DAILY lisinopril-hydrochlorothiazide 20-25 mg tablet 1 tab PO DAILY mecobalamin (vitamin B12) 1,000 mcg tablet,chewable 1,000 mcg PO DAILY levofloxacin 500 mg tablet 500 mg PO DAILY Qty: 3 0RF Rx Instructions: Take 1 tab the day before the procedure, one the day of the procedure, and 1 tab the day after the procedure.
--- NOTE | 2024-07-28 06:58 | W.PCEDHO ---
Registration Status: Primary Language: Preferred Language: ED Information & Data Chief Complaint Fall/Non TraumaCriteria 07/27/24 20:35 Triage Note 1830 pt fell down, pt lost 07/27/24 19:54 balance coming off porch to concrete. pt able to turn self and fel to right side, hip to ankle hurts. DId hit head, not very hard, small abrasion to back of head. ptnot on blood thinners, axox4, PERRLA. pt took APAP prior to arrival Medical / Surgical History (Last Reviewed 07/04/24 @ 09:10 by Juli Villaseñor DNP) BPH (benign prostatic hyperplasia) Hypertension Screening for diabetes mellitus Seborrheic keratoses (Last Reviewed 07/04/24 @ 09:10 by Juli Villaseñor DNP) History of cataract surgery Most Recent Vital Signs Temperature 35.9 C L 07/28/24 06:14 Temperature Source Tympanic 07/28/24 06:14 Pulse 67 07/28/24 06:14 Pulse 42 L 07/28/24 04:20 Respiratory Rate 16 07/28/24 06:14 Respiratory Effort Normal 07/27/24 19:58 Blood Pressure 178/97 H 07/28/24 06:14 Pulse Oximetry 99 07/28/24 06:14 Oxygen Delivery Method Room Air 07/28/24 06:14 Oxygen Flow Rate 0 07/28/24 06:14 Pain Level 5 07/28/24 06:14 Allergies No Known Allergies Allergy (Unverified 07/27/24 19:57) IV IV Catheter Type [Left Saline Lock Antecubital] IV Catheter Gauge [Left 18 Antecubital] Diagnostics 07/27/24 Range/Units 21:56 WBC 12.63 H (4.4-10.8) 10^3/uL RBC 4.49 (4.36-5.78) 10^6/uL Hgb 14.4 (13.5-17.5) g/dL Hct 42.3 (40.0-50.0) % MCV 94 (80-95) fL MCH 32.1 (27.0-33.0) pg MCHC 34.0 (32.0-36.0) % RDW 13.9 (11.8-14.1) % Plt Count 263 (130-400) 10^3/uL MPV 9.9 (8.0-11.0) fL Immature Gran % 0.7 % Neutrophils % 80.3 % Lymphocytes % 10.6 % Monocytes % 7.3 % Eosinophils % 0.6 % Basophils % 0.5 % Nucleated RBC % 0.0 (0.0-0.3) % Absolute Neutrophils 10.14 H (1.2-6.7) 10^3/uL Absolute Lymphocytes 1.34 (1.2-3.4) 10^3/uL Absolute Monocytes 0.92 H (0.1-0.8) 10^3/uL Absolute Eosinophils 0.08 (0.0-0.7) 10^3/uL Absolute Basophils 0.06 (0.0-0.2) 10^3/uL Sodium 135 L (136-145) mmol/L Potassium 4.8 (3.5-5.1) mmol/L Chloride 100 (98-107) mmol/L Carbon Dioxide 23.4 (21.0-32.0) mmol/L Anion Gap 11.6 H (3-11) mmol/L BUN 19 H (7-18) mg/dL Creatinine 1.0 (0.70-1.30) mg/dL Est GFR (CKD-EPI 2020) 79.97 (mL/min/1.73m2) Glucose 99 (74-106) mg/dL Calcium 9.0 (8.5-10.1) mg/dL Total Bilirubin 0.47 (0.2-1.0) mg/dL AST 31 (15-37) U/L ALT 30 (16-63) U/L Alkaline Phosphatase 128 H (46-116) U/L Total Protein 6.2 L (6.4-8.2) g/dL Albumin 3.3 L (3.4-5.0) g/dL Intake and Output - 24 Hour Total 07/27/24 19:48 thru 07/27/24 19:54 Weight 62.596 kg Falls Risk Assessment History of Falls Previous History 07/27/24 23:02 Contributing Factors No Factors 07/27/24 23:02 Ambulatory Aids Independent 07/27/24 23:02 Tubes/Lines None 07/27/24 23:02 Gait Evaluation No gait disturbance 07/27/24 23:02 Cognition No cognitive impairment 07/27/24 23:02 Fall Total Score 15 07/27/24 23:02 Level of Risk Standard/Low Risk 07/27/24 23:02 v v v v v v v v v Sending and/or Receiving Nurses: Please use comment section below to note any information pertinent to the patient hand-off not included above. Information / Comments: Report received from: Jose A Morris RN @ 0645 hours 07/28/24
[2024-07-28] MEDS: HYDROmorphone 2 MG/ML SYR 1 MG IVP ×2 (07:24→13:05)
--- NOTE | 2024-07-28 08:08 | W.PM.HP.N ---
Date of service: 07/28/24 Time of Service: 08: Assessment and Plan Assessment and plan (1) Closed right hip fracture: Status: Acute Assessment and plan: - Resulted from a fall from 2 steps backwards -No loss of consciousness or acute findings on head CT -Imaging showed right intertrochanteric femur fracture -Patient has been accepted to hospitalist service under Dr. Garrison at [facility] with orthopedic surgery consulting for surgical intervention -Patient will remain n.p.o. (2) Dementia: Status: Chronic Assessment and plan: - Hold home donepezil (3) Hypertension: Status: Chronic Assessment and plan: - Hold home lisinopril/HCTZ History of Present Illness History of Present Illness Chief Complaint: Fall Narrative: 73-year-old male with a past medical history of dementia and hypertension who presented to the emergency department after experiencing a fall. Patient reportedly experienced a fall from standing from 2 steps falling backwards landing on his right side mainly on his hip and ankle. There was no reported loss of consciousness however patient did also experience superficial abrasion to his occipital scalp. Patient denies any lightheadedness, dizziness, chest pain, shortness of breath. In the emergency department the patient was noted as having significant difficulty moving his right lower extremity at the hip appear to be well-perfused. Head CT was negative but imaging did show a right intertrochanteric femur fracture. Unfortunately, orthopedic surgery services are not available at [facility] until 925 which prompted emergency room to reach out to outside hospitals and attempt to facilitate surgical intervention. Ultimately, hospitalist Dr. Garrison at [facility] [place] the hospital with orthopedic CV surgery consultation services. However, [facility] [place] informed that bed may not be available until later in the afternoon on 07/28/2024. Therefore, emergency room physician paged hospitalist for admission for patient with right intertrochanteric hip fracture has been accepted to [facility] for transfer. Review of Systems All systems reviewed & are unremarkable except as noted in HPI and below PFSH All Active Problems (Updated 07/28/24 @ 08:26 by Fer Velasco MD) Hypertension (Chronic) Closed right hip fracture (Acute) Lower urinary tract symptoms (LUTS) (Acute) Prostate nodule (Acute) Elevated PSA, greater than or equal to 20 ng/ml (Acute) Elevated PSA (Acute) Dementia (Chronic) Nuclear sclerotic cataract of right eye (Acute) Medical History BPH (benign prostatic hyperplasia) Screening for diabetes mellitus Seborrheic keratoses Hypertension Surgical History History of cataract surgery Social History Smoking/Tobacco Use Status: Former Tobacco Use Quit Date: 11/06/79 Smoking risk assessment performed?: Yes Alcohol Intake: current Alcohol Intake frequency: a few times a week Alcohol type: beer Drug use: Never Substance use type: does not use Details: drank 1 beer tonight Housing: house Do you feel safe at home: Yes Do you feel safe in your relationship?: Yes Meds Allergies and Home Medications Allergies Allergy/AdvReac Type Severity Reaction Status Date / Time No Known Allergies Allergy Unverified 07/27/24 19:57 Home Medications ?Medication ?Instructions ?Recorded ?Confirmed ?Type donepezil 5 mg tablet 5 mg PO DAILY 04/24/24 07/27/24 History lisinopril 20 1 tab PO DAILY 04/24/24 07/27/24 History mg-hydrochlorothiazide 25 mg tablet mecobalamin (vitamin B12) 1,000 1,000 mcg PO DAILY 04/24/24 07/27/24 History mcg chewable tablet levofloxacin 500 mg tablet 500 mg PO DAILY #3 tabs 07/09/24 07/27/24 Rx Exam Narrative Exam Narrative: Well-appearing older gentleman laying in bed in no acute distress, ANO x 4, heart regular rhythm, lungs clear to auscultation bilaterally, abdomen soft, nontender, nondistended, right lower extremity shortened with external rotation Results Labs 07/27/24 21:56 07/27/24 21:56 Labs: Laboratory Results - last 24 hr 07/27/24 21:56 WBC 12.63 H RBC 4.49 Hgb 14.4 Hct 42.3 MCV 94 MCH 32.1 MCHC 34.0 RDW 13.9 Plt Count 263 MPV 9.9 Immature Gran % 0.7 Neutrophils % 80.3 Lymphocytes % 10.6 Monocytes % 7.3 Eosinophils % 0.6 Basophils % 0.5 Nucleated RBC % 0.0 Absolute Neutrophils 10.14 H Absolute Lymphocytes 1.34 Absolute Monocytes 0.92 H Absolute Eosinophils 0.08 Absolute Basophils 0.06 Sodium 135 L Potassium 4.8 Chloride 100 Carbon Dioxide 23.4 Anion Gap 11.6 H BUN 19 H Creatinine 1.0 Est GFR (CKD-EPI 2020) 79.97 Glucose 99 Calcium 9.0 Total Bilirubin 0.47 AST 31 ALT 30 Alkaline Phosphatase 128 H Total Protein 6.2 L Albumin 3.3 L Last Vital Signs Temp 96.6 F L 07/28/24 06:14 Pulse 67 07/28/24 06:14 Resp 16 07/28/24 06:14 BP 178/97 H 07/28/24 06:14 Pulse Ox 99 07/28/24 06:14 Time Spent Time spent with Patient: >75 minutes Time was spent: preparing to see the patient(eg.review tests), obtaining and/or reviewing separately otained hiistory, ordering medications,tests, procedures, referring, communicating with other health medicare sales executive, indepentently interpreting results, counseling the patient and care coordination
[2024-07-28] MEDS: Lisinopril 20 MG TAB PO (08:30)
[2024-07-28] MEDS: Donepezil 5 MG TAB PO (08:30)
[2024-07-28] MEDS: hydroCHLOROthiazide 25 MG TAB PO (08:30)
[2024-07-28] MEDS: Normal Saline Flush 10 ML SYR IVP (13:06)
--- NOTE | 2024-07-28 13:36 | W.PM.DS.N ---
Date of service: 07/28/24 Time of Service: 13:36 DS: Diagnosis Discharge Diagnosis (1) Closed right hip fracture: Status: Acute (2) Dementia: Status: Chronic (3) Hypertension: Status: Chronic Discharge Plan Disposition Patient Disposition: Transfer-Acute Inpatient Care Specific Acute Inpt Facility: [facility] Condition: Good Discharge Details Reason For Visit: Right Intertrochnteric femur Fracture Admit Date/Time: 07/28/24 08:06 Admit Provider: Fer Velasco Attending Provider: Fer Velasco Primary Care Provider: uRy Ellis Hospital Course Hospital Course: Patient initially presented to the emergency department after experiencing a fall and was found to have a right intertrochanteric femur fracture. Orthopedic surgery services not available at [facility] and emergency room providers were able to reach out [facility] for excepting for her bladder being Dr. Garrison hospitalist with orthopedic surgery consulting services. Ultimately patient remained stable during hospitalization at [facility] and was determined to be stable for transfer to [facility]. Home Meds and New Rx's Prescriptions: No Action donepezil 5 mg tablet 5 mg PO DAILY lisinopril-hydrochlorothiazide 20-25 mg tablet 1 tab PO DAILY mecobalamin (vitamin B12) 1,000 mcg tablet,chewable 1,000 mcg PO DAILY levofloxacin 500 mg tablet 500 mg PO DAILY Qty: 3 0RF Rx Instructions: Take 1 tab the day before the procedure, one the day of the procedure, and 1 tab the day after the procedure. Discharge Instructions Activity:: Activity as Tolerated Equipment/Supplies:: No Equipment Needed Diet:: As Tolerated Discharge Orders Discharge Orders: Discharge Order (Routine); Ordered 07/28/24 Ordered By: Fer Velasco DS: Summary Time Spent with Patient providing and/or coordinating discharge services: Greater than 30 minutes Status at Discharge Functional status at discharge: independent ambulation Overall status at discharge: patient is back to baseline Mental Status: mental status grossly normal Speech and Movement: speech and movement normal Mood: congruent mood Affect: normal affect Quality:SDOH Health Related Social Needs: No Data to Display Exam Narrative Exam Narrative: Well-appearing older gentleman laying in bed in no acute distress, ANO x 4, heart regular rhythm, lungs clear to auscultation bilaterally, abdomen soft, nontender, nondistended, right lower extremity shortened with external rotation Psych Mental Status: mental status grossly normal Speech and Movement: speech and movement normal Mood: congruent mood Affect: normal affect DS: Data Vitals/I&O Vitals and I&O: Vital Signs Temperature 97.5 F L 07/28/24 11:37 Temperature Source Skin 07/28/24 11:37 Pulse 53 L 07/28/24 11:37 Pulse Rhythm Regular 07/28/24 09:37 Pulse 42 L 07/28/24 04:20 Respiratory Rate 14 07/28/24 11:37 Respiratory Effort Normal 07/28/24 09:37 Respiratory Depth Normal 07/28/24 09:37 Respiratory Pattern Normal 07/28/24 09:37 Blood Pressure 127/76 07/28/24 11:37 Blood Pressure Mean 83 07/28/24 08:13 Blood Pressure Position Supine 07/28/24 08:13 Pulse Oximetry 95 07/28/24 11:37 Oxygen Delivery Method Room Air 07/28/24 11:37 Oxygen Flow Rate 0 07/28/24 11:37 Pain Level 5 07/28/24 13:05 Comment pain level tolerable, difficulty giving number on pain scale 07/28/24 11:37 Intake & Output 07/27/24 07/28/24 07/28/24 17:59 05:59 17:59 Output Total 250 / 250 Balance -250 / -250 Weight 138 lb 132 lb Output: Urine 250 / 250 Other: Urine Color Light [place] Urine Appearance Clear Voiding Methods Urinal Data Completed and Pending Labs on day of discharge: Labs from last 24 hours 07/27/24 21:56 WBC 12.63 H RBC 4.49 Hgb 14.4 Hct 42.3 MCV 94 MCH 32.1 MCHC 34.0 RDW 13.9 Plt Count 263 MPV 9.9 Immature Gran % 0.7 Neutrophils % 80.3 Lymphocytes % 10.6 Monocytes % 7.3 Eosinophils % 0.6 Basophils % 0.5 Nucleated RBC % 0.0 Absolute Neutrophils 10.14 H Absolute Lymphocytes 1.34 Absolute Monocytes 0.92 H Absolute Eosinophils 0.08 Absolute Basophils 0.06 Sodium 135 L Potassium 4.8 Chloride 100 Carbon Dioxide 23.4 Anion Gap 11.6 H BUN 19 H Creatinine 1.0 Est GFR (CKD-EPI 2020) 79.97 Glucose 99 Calcium 9.0 Total Bilirubin 0.47 AST 31 ALT 30 Alkaline Phosphatase 128 H Total Protein 6.2 L Albumin 3.3 L PFSH All Active Problems (Updated 07/28/24 @ 08:26 by Fer Velasco MD) Hypertension (Chronic) Closed right hip fracture (Acute) Lower urinary tract symptoms (LUTS) (Acute) Prostate nodule (Acute) Elevated PSA, greater than or equal to 20 ng/ml (Acute) Elevated PSA (Acute) Dementia (Chronic) Nuclear sclerotic cataract of right eye (Acute) Medical History BPH (benign prostatic hyperplasia) Screening for diabetes mellitus Seborrheic keratoses Hypertension Surgical History History of cataract surgery Social History Smoking/Tobacco Use Status: Former Tobacco Use Quit Date: 11/06/79 Smoking risk assessment performed?: Yes Alcohol Intake: current Alcohol Intake frequency: a few times a week Alcohol type: beer Drug use: Never Substance use type: does not use Details: drank 1 beer tonight Housing: house Do you feel safe at home: Yes Do you feel safe in your relationship?: Yes Time Spent with Patient Time Spent with Patient: <45 minutes Time was spent: preparing to see the patient(eg.review tests), obtaining and/or reviewing separately otained hiistory, ordering medications,tests, procedures, referring, communicating with other health nonfarm animal caretaker, indepentently interpreting results, counseling the patient and care coordination
--- NOTE | 2024-07-28 16:25 | W.PC.ACHO ---
Registration Status: Primary Language: Preferred Language: ED Information & Data Chief Complaint Fall/Non TraumaCriteria 07/27/24 20:35 Triage Note 1830 pt fell down, pt lost 07/27/24 19:54 balance coming off porch to concrete. pt able to turn self and fel to right side, hip to ankle hurts. DId hit head, not very hard, small abrasion to back of head. ptnot on blood thinners, axox4, PERRLA. pt took APAP prior to arrival Medical / Surgical History (Last Reviewed 07/04/24 @ 09:10 by Juli Villaseñor DNP) BPH (benign prostatic hyperplasia) Screening for diabetes mellitus Seborrheic keratoses (Last Reviewed 07/04/24 @ 09:10 by Juli Villaseñor DNP) History of cataract surgery Most Recent Vital Signs Temperature 36.2 C L 07/28/24 15:55 Temperature Source Skin 07/28/24 15:55 Pulse 49 L 07/28/24 15:55 Pulse Rhythm Regular 07/28/24 09:37 Pulse 42 L 07/28/24 04:20 Respiratory Rate 15 07/28/24 15:55 Respiratory Effort Normal 07/28/24 09:37 Respiratory Depth Normal 07/28/24 09:37 Respiratory Pattern Normal 07/28/24 09:37 Blood Pressure 165/82 H 07/28/24 15:55 Blood Pressure Mean 83 07/28/24 08:13 Blood Pressure Position Supine 07/28/24 08:13 Pulse Oximetry 97 07/28/24 15:55 Oxygen Delivery Method Room Air 07/28/24 15:55 Oxygen Flow Rate 0 07/28/24 15:55 Pain Level 4 07/28/24 15:55 Comment pain level tolerable, difficulty giving number on pain scale 07/28/24 11:37 Allergies No Known Allergies Allergy (Unverified 07/27/24 19:57) IV IV Catheter Type [Left Saline Lock Antecubital] IV Catheter Gauge [Left 18 Antecubital] Diagnostics 07/27/24 Range/Units 21:56 WBC 12.63 H (4.4-10.8) 10^3/uL RBC 4.49 (4.36-5.78) 10^6/uL Hgb 14.4 (13.5-17.5) g/dL Hct 42.3 (40.0-50.0) % MCV 94 (80-95) fL MCH 32.1 (27.0-33.0) pg MCHC 34.0 (32.0-36.0) % RDW 13.9 (11.8-14.1) % Plt Count 263 (130-400) 10^3/uL MPV 9.9 (8.0-11.0) fL Immature Gran % 0.7 % Neutrophils % 80.3 % Lymphocytes % 10.6 % Monocytes % 7.3 % Eosinophils % 0.6 % Basophils % 0.5 % Nucleated RBC % 0.0 (0.0-0.3) % Absolute Neutrophils 10.14 H (1.2-6.7) 10^3/uL Absolute Lymphocytes 1.34 (1.2-3.4) 10^3/uL Absolute Monocytes 0.92 H (0.1-0.8) 10^3/uL Absolute Eosinophils 0.08 (0.0-0.7) 10^3/uL Absolute Basophils 0.06 (0.0-0.2) 10^3/uL Sodium 135 L (136-145) mmol/L Potassium 4.8 (3.5-5.1) mmol/L Chloride 100 (98-107) mmol/L Carbon Dioxide 23.4 (21.0-32.0) mmol/L Anion Gap 11.6 H (3-11) mmol/L BUN 19 H (7-18) mg/dL Creatinine 1.0 (0.70-1.30) mg/dL Est GFR (CKD-EPI 2020) 79.97 (mL/min/1.73m2) Glucose 99 (74-106) mg/dL Calcium 9.0 (8.5-10.1) mg/dL Total Bilirubin 0.47 (0.2-1.0) mg/dL AST 31 (15-37) U/L ALT 30 (16-63) U/L Alkaline Phosphatase 128 H (46-116) U/L Total Protein 6.2 L (6.4-8.2) g/dL Albumin 3.3 L (3.4-5.0) g/dL Intake and Output - 24 Hour Total 07/27/24 19:48 thru 07/28/24 12:44 Output Total 250 Balance -250 Weight 59.874 kg Output: Urine 250 Other: Urine Color Light [place] Urine Appearance Clear Voiding Methods Urinal Falls Risk Assessment History of Falls Admit Due to Fall 07/28/24 09:37 Contributing Factors Confusion 07/28/24 09:37 Ambulatory Aids Independent 07/27/24 23:02 Tubes/Lines None 07/27/24 23:02 Gait Evaluation No gait disturbance 07/27/24 23:02 Cognition No cognitive impairment 07/27/24 23:02 Fall Total Score 28 07/28/24 09:37 Level of Risk Moderate Risk 07/28/24 09:37 Problems (Last Reviewed 07/04/24 @ 09:10 by Juli Villaseñor DNP) Hypertension (Chronic) Closed right hip fracture (Acute) Dementia (Chronic) v v v v v v v v v Sending and/or Receiving Nurses: Please use comment section below to note any information pertinent to the patient hand-off not included above. Information / Comments: S: Pt is in ED awaiting transfer to [facility] for hip surgery B: pt fell last night at home, backwards down 1 stair, Scans show a right intratrochanteric femoral fx with moderate deformity and soft tissue swelling A: No pain without mvmt, LS CTA, 18 g L ac, NPO since yesterday at noon, using bedside urinal R: Control pain, BR, turn Q 2 hours Report received from:Marion at 08:58am
== END 2024-07-28 16:16 | disposition short-term general hospital (02) | DRG 536 ==
LOC: ER 07-28 08:24 → MS 07-28 09:27
PROVIDERS: Emergency Medicine; Admitting Provider Family Medicine; Emergency Provider Emergency Medicine; PCP Family Medicine; Visit Provider Family Medicine
DX: S72.141A Displaced intertrochanteric fracture of right femur, initial encounter for closed fracture (principal); F03.90 Unspecified dementia, unspecified severity, without behavioral disturbance, psychotic disturbance, mood disturbance, and anxiety; I10 Essential (primary) hypertension; W01.0XXA Fall on same level from slipping, tripping and stumbling without subsequent striking against object, initial encounter; N40.1 Benign prostatic hyperplasia with lower urinary tract symptoms; Z87.891 Personal history of nicotine dependence; Z79.899 Other long term (current) drug therapy
CPT/HCPCS: 00123; 73552; 73562; 80053; 96374; 96375; 96376; 99285; 72170; 73590; 73610; 85025; 99234; J1170; J1885

== ENCOUNTER 2024-08-26 15:44 | Outpatient (CLI) | payer OTHER, SELFPAY ==
--- NOTE | 2024-08-26 09:30 | DI.RAD_ITS ---
Exam(s) XR KNEE RT 1V EXAM: XR KNEE RT 1V CLINICAL HISTORY: R knee pain. TECHNIQUE: 2D digital imaging was performed. COMPARISON: CR,XR XR KNEE RT 3V AP,LAT,SAM from 07/27/2024 FINDINGS: Single merchant's view. No patellar fracture or patellar displacement and there is no narrowing of the patellofemoral compart ment on the single view. No osseous lesions. IMPRESSION: No significant findings on this single merchant's view of the right knee. DATA REPOSITORY: RADIATION DOSE DELIVERED:
== END 2024-08-26 15:45 | disposition home or self-care (01) ==
LOC: DIORS 15:44
PROVIDERS: PCP Family Medicine; Referring Provider Family Medicine; Visit Provider Student in an Organized Health Care Education/Training Program
DX: M17.11 Unilateral primary osteoarthritis, right knee
CPT/HCPCS: 20610; 99213; J1010; 73560

== ENCOUNTER 2025-01-14 09:16 | Outpatient (CLI) | payer OTHER, SELFPAY ==
--- NOTE | 2025-01-14 08:45 | DI.RAD_ITS ---
Exam(s) XR HIP RT AP LAT ONLY EXAM: XR HIP RT AP LAT ONLY CLINICAL HISTORY: F/U R KNEE. TECHNIQUE: 2D digital imaging was performed. Two images were obtained. AP and lateral views were ob tained. COMPARISON: CR,XR XR TIB/FIB RT from 07/27/2024 CR,XR XR PELVIS AP from 07/27/2024 DX XR PELVIS AND HIP 2 VIEWS RIGHT from 10/07/2024 FINDINGS: BONES: There are stable post operative changes of an intramedullary betty in the proximal right femur p resent. No new fracture or dislocation. No suspicious lucencies are seen in or around the orthopedic hardware. JOINTS: The joint spaces are well maintained. There are mild degenerative changes seen in the right hip. SOFT TISSUE: Normal. IMPRESSION: Stable postoperative changes. DATA REPOSITORY: RADIATION DOSE DELIVERED:
== END 2025-01-14 09:17 | disposition home or self-care (01) ==
LOC: DIORS 09:16
PROVIDERS: PCP Family Medicine; Visit Provider Physician Assistant
DX: S72.141D Displaced intertrochanteric fracture of right femur, subsequent encounter for closed fracture with routine healing (principal); X58.XXXD Exposure to other specified factors, subsequent encounter
CPT/HCPCS: 73502

== ENCOUNTER 2025-06-26 17:54 | Outpatient (REF) | payer MEDICARE, SELFPAY ==
[2025-06-26 21:06] LABS: ALT 28 U/L (16-63); AST 17 U/L (15-37); Albumin 3.7 g/dL (3.4-5.0); Alkaline Phosphatase 112 U/L (46-116); Anion Gap 7.1 mmol/L (3-11); BUN 20 mg/dL (7-18); Bilirubin, Total 0.5 mg/dL (0.2-1.0); CO2 30.9 mmol/L (21.0-32.0); Calcium 9.2 mg/dL (8.5-10.1); Chloride 104 mmol/L (98-107); Estimated GFR 90.18 (mL/min/1.73m2); Glucose 94 mg/dL (74-106); Potassium 4.6 mmol/L (3.5-5.1); Sodium 142 mmol/L (136-145); Total Protein 6.7 g/dL (6.4-8.2)
[2025-06-26 21:33] LABS: COMMENT (LAB VIEW ONLY) 62.58 mg/dL; Microalb ug/mg Crea 12.8 ug/mg Cr
== END 2025-06-26 17:55 | disposition home or self-care (01) ==
LOC: NCHCN 17:54
PROVIDERS: PCP Family Medicine; Visit Provider Family Medicine
DX: R97.20 Elevated prostate specific antigen [PSA] (principal); I10 Essential (primary) hypertension
CPT/HCPCS: 80053; 82043; 82570; 84154